=== PATIENT | male | born 1955 | race Caucasian/White ===

== ENCOUNTER 2025-09-10 14:14 | Inpatient (IN) | payer BC, MEDICAID ==
[~2025-09-10] VITALS: Ht 165.1 cm; Wt 96.3 kg
[~2025-09-10 14:14] MED LIST: APIX5TAB MT; OMEP40CA20 PO; P20 PO
[2025-09-10] MEDS: SODIUM CHLORIDE 0.9% (SEPSIS BOLUS) IV ONE (14:49)
[2025-09-10] MEDS: IOHEXOL-350 100 ML BOTTLE ONE (14:59)
[2025-09-10] MEDS: METRONIDAZOLE 500 MG PREMIX 100 ML IV ONE (15:08)
[2025-09-10] MEDS: ONDANSETRON HCL 4MG/2ML INJ IV ONE (15:08)
[2025-09-10 15:19] LABS: HEMATOCRIT. 37.5 % (42.0-52.0); HEMOGLOBIN. 12.1 g/dL (14.0-18.0); MEAN PLATELET VOLUME 7.8 fl (7.4-10.4); PLATELET 219 x1000/uL (130-400); RED BLOOD CELL COUNT 4.01 mill/uL (4.7-6.1); RED CELL DISTRIBUTION WIDTH 16.6 % (11.6-14.6)
[2025-09-10 15:30] LABS: INR 1.0
[2025-09-10 15:35] LABS: CREATININE 1.3 mg/dL (0.6-1.3); UREA NITROGEN BLOOD 17 mg/dL (9-23)
[2025-09-10 15:36] LABS: PROTEIN TOTAL 5.9 g/dL (6.0-8.3)
[2025-09-10 15:37] LABS: ASPARTATE AMINOTRANSFERASE 97 IU/L (<34); BILIRUBIN DIRECT 0.2 mg/dL (<=3.0); BILIRUBIN TOTAL 0.4 mg/dL (0.1-1.0); TROPONIN I HIGH SENSITIVITY 23 ng/L (3.0-53)
[2025-09-10 15:39] LABS: BG DEOXYHEMOGLOBIN 44.9 % (0.0-5.0)
[2025-09-10] MEDS: CEFTRIAXONE 1GM/50ML 50 ML IV ONE (16:07)
[2025-09-10 17:04] LABS: TROPONIN I HIGH SENSITIVITY 18 ng/L (3.0-53)
[2025-09-10 17:27] LABS: BAND% 15.0 % (1.0-6.0); EOSINOPHILS % MANUAL 2.0 % (0.0-5.0); LYMPHOCYTES % MANUAL 8.0 % (20.0-50.0); MONOCYTES % MANUAL 3.0 % (2.0-8.0); NEUTROPHILS % MANUAL 72.0 % (45.0-75.0); PLATELET ESTIMATE NORMAL
[2025-09-10 19:16] VITALS: BP 146/70; PULSE 97; RESP 22; TEMP 36.2
[2025-09-10 19:30] VITALS: BP 146/70; PULSE 97; RESP 22; TEMP 36.2512
[2025-09-10] MEDS ORDERED: DEXTROSE 50% WATER 50ML SYRINGE IV PRN (19:30)
[2025-09-10] MEDS ORDERED: CLONIDINE 0.1MG TABLET PO PRN (19:30)
[2025-09-10] MEDS ORDERED: ZOLPIDEM TARTRATE 5MG TABLET PO PRN (19:30)
[2025-09-10] MEDS ORDERED: DOCUSATE SODIUM 100MG CAPSULE PO PRN (19:30)
[2025-09-10] MEDS ORDERED: IPRATROPIUM/ALBUTEROL 0.5-3(2.5)MG/3ML NEB NEB PRN (19:30)
[2025-09-10] MEDS: INSULIN LISPRO 100 UNITS/ML SUBCUT SCH (21:00)
[2025-09-10] MEDS: BLOOD SUGAR DIAGNOSTIC STRIP TEST SCH (21:24)
[2025-09-10 21:34] LABS: BG BASE EXCESS -1.2 mmol/L (-2.0-3.0); BG CARBOXYHEMOGLOBIN 2.0 % (0.5-1.5); BG DEOXYHEMOGLOBIN 6.1 % (0.0-5.0); BG FLOW(L/min) 3.00 L/min; BG FRACTION INSPIRED OXYGEN 32; BG HCO3 ACT 28.7 mmol/L (21.0-28.0); BG METHEMOGLOBIN 0.2 % (0.5-1.5); BG OXYGEN SATURATION 93.8 % (94.0-98.0); BG OXYHEMOGLOBIN 91.7 % (94.0-98.0); BG PCO2 75.9 mmHg (35.0-48.0); BG PH 7.195 (7.350-7.450); BG PO2 81.6 mmHg (83.0-108.0); BG SAMPLE SITE RIGHT RADIAL; BG TOTAL HEMOGLOBIN 12.9 g/dL (13.5-17.5); BG VENT MODE NASAL CANNULA
[2025-09-10 22:05] VITALS: RESP 25
[2025-09-10] MEDS: PIPERACILLIN/TAZO 3.375G/50ML 50 ML IV SCH (22:46)
[2025-09-11] VITALS (17 sets, daily range): BP systolic 104–147; BP diastolic 62–127; PULSE 66–90; RESP 13–30; TEMP 36.1–36.8; O2SAT 92–100
[2025-09-11 01:51] LABS: BG BASE EXCESS -0.5 mmol/L (-2.0-3.0); BG CARBOXYHEMOGLOBIN 2.0 % (0.5-1.5); BG DEOXYHEMOGLOBIN 11.1 % (0.0-5.0); BG FRACTION INSPIRED OXYGEN 30; BG HCO3 ACT 28.6 mmol/L (21.0-28.0); BG METHEMOGLOBIN 0.3 % (0.5-1.5); BG OXYGEN SATURATION 88.6 % (94.0-98.0); BG OXYHEMOGLOBIN 86.6 % (94.0-98.0); BG PCO2 70.6 mmHg (35.0-48.0); BG PH 7.226 (7.350-7.450); BG PO2 60.1 mmHg (83.0-108.0); BG SAMPLE SITE RIGHT RADIAL; BG TOTAL HEMOGLOBIN 12.4 g/dL (13.5-17.5); BG VENT MODE MASK - BIPAP; BG VENT RATE 22.0 set
[2025-09-11 05:02] LABS: CLARITY URINE CLEAR (CLEAR); COLOR URINE YELLOW (YELLOW); GLUCOSE URINE NEGATIVE (NEGATIVE); KETONES URINE NEGATIVE (NEGATIVE); LEUKOCYTE ESTERASE URINE NEGATIVE (NEGATIVE); NITRITE URINE NEGATIVE (NEGATIVE); OCCULT BLOOD URINE NEGATIVE (NEGATIVE); PH URINE 5.5 (4.5-8.0); PROTEIN URINE TRACE (NEGATIVE); SPECIFIC GRAVITY URINE 1.028 (1.005-1.030); UROBILINOGEN URINE 1.0 E.U./dL (0.2-1.0)
[2025-09-11 05:18] LABS: *AMPHETAMINES SCREEN URINE PRESUMPTIVE POSITIVE (NEGATIVE); *BARBITURATES SCREEN URINE NEGATIVE (NEGATIVE); *BENZODIAZEPINES SCREEN URINE NEGATIVE (NEGATIVE); *COCAINE SCREEN URINE NEGATIVE (NEGATIVE); METHADONE URINE SCREEN NEGATIVE (NEGATIVE); OPIATES URINE SCREEN NEGATIVE (NEGATIVE)
[2025-09-11 05:19] LABS: CANNABINOID URINE SCREEN NEGATIVE (NEGATIVE); ECSTASY MDMA SCREEN URINE NEGATIVE (NEGATIVE); PHENCYCLIDINE URINE SCREEN NEGATIVE (NEGATIVE)
[2025-09-11 05:36] LABS: BACTERIA URINE NONE SEEN; RBC URINE NONE SEEN /hpf (0-2); SQUAMOUS EPITHELIAL CELL URINE NONE SEEN /lpf (RARE/1+); WBC URINE NONE SEEN /hpf (0-2)
[2025-09-11 07:12] LABS: BG BASE EXCESS 1.7 mmol/L (-2.0-3.0); BG CARBOXYHEMOGLOBIN 0.8 % (0.5-1.5); BG DEOXYHEMOGLOBIN 1.7 % (0.0-5.0); BG FRACTION INSPIRED OXYGEN 50; BG HCO3 ACT 31.6 mmol/L (21.0-28.0); BG METHEMOGLOBIN 0.3 % (0.5-1.5); BG OXYGEN SATURATION 98.3 % (94.0-98.0); BG OXYHEMOGLOBIN 97.2 % (94.0-98.0); BG PCO2 80.8 mmHg (35.0-48.0); BG PH 7.210 (7.350-7.450); BG PO2 124.9 mmHg (83.0-108.0); BG SAMPLE SITE RIGHT RADIAL; BG TOTAL HEMOGLOBIN 12.2 g/dL (13.5-17.5); BG VENT MODE MASK - BIPAP; BG VENT RATE 22.0 set
[2025-09-11] MEDS ORDERED: KCL 10MEQ/50ML PREMIX 50 ML IV SCH (08:00)
[2025-09-11] MEDS: AMLODIPINE 5MG TABLET PO SCH (09:00)
[2025-09-11] MEDS: ASPIRIN 81MG TABLET PO SCH (09:00)
[2025-09-11] MEDS: CLOPIDOGREL 75MG TABLET PO SCH (09:00)
[2025-09-11 10:42] LABS: BG BASE EXCESS 0.8 mmol/L (-2.0-3.0); BG CARBOXYHEMOGLOBIN 1.0 % (0.5-1.5); BG DEOXYHEMOGLOBIN 2.7 % (0.0-5.0); BG FRACTION INSPIRED OXYGEN 40; BG HCO3 ACT 30.8 mmol/L (21.0-28.0); BG METHEMOGLOBIN 0.3 % (0.5-1.5); BG OXYGEN SATURATION 97.3 % (94.0-98.0); BG OXYHEMOGLOBIN 96.0 % (94.0-98.0); BG PCO2 78.5 mmHg (35.0-48.0); BG PH 7.211 (7.350-7.450); BG PO2 97.6 mmHg (83.0-108.0); BG SAMPLE SITE LEFT RADIAL; BG TOTAL HEMOGLOBIN 12.9 g/dL (13.5-17.5); BG TOTAL RESPIRATORY RATE 33 b/min; BG VENT MODE MASK - BIPAP; BG VENT RATE 28.0 set
[2025-09-11] MEDS: KCL 20MEQ/100ML PREMIX 100 ML IV SCH (11:00)
[2025-09-11] MEDS: METHYLPREDNISOLONE SOD SUCC 40MG/ML (ACT-O-VIAL) IV SCH (11:00)
[2025-09-11] MEDS: FUROSEMIDE 40MG/4ML VIAL IVP SCH (11:00)
[2025-09-11] MEDS: DEXT 5%/0.45% NACL 1000ML 1,000 ML IV SCH (11:01)
[2025-09-11 13:36] LABS: BG BASE EXCESS 2.5 mmol/L (-2.0-3.0); BG CARBOXYHEMOGLOBIN 1.2 % (0.5-1.5); BG DEOXYHEMOGLOBIN 2.6 % (0.0-5.0); BG FRACTION INSPIRED OXYGEN 40; BG HCO3 ACT 32.7 mmol/L (21.0-28.0); BG METHEMOGLOBIN 0.3 % (0.5-1.5); BG OXYGEN SATURATION 97.4 % (94.0-98.0); BG OXYHEMOGLOBIN 95.9 % (94.0-98.0); BG PCO2 81.1 mmHg (35.0-48.0); BG PH 7.224 (7.350-7.450); BG PO2 98.1 mmHg (83.0-108.0); BG SAMPLE SITE RIGHT RADIAL; BG TOTAL HEMOGLOBIN 13.9 g/dL (13.5-17.5); BG VENT MODE MASK - BIPAP; BG VENT RATE 28.0 set
[2025-09-11 13:52] LABS: BASOPHILS % 0.2 % (0.0-2.0); EOSINOPHILS % 0.1 % (0.0-5.0); HEMATOCRIT. 38.8 % (42.0-52.0); HEMOGLOBIN. 12.7 g/dL (14.0-18.0); LYMPHOCYTES % 8.0 % (20.0-50.0); MEAN PLATELET VOLUME 7.7 fl (7.4-10.4); MONOCYTES % 4.0 % (2.0-8.0); NEUTROPHILS % 87.7 % (40.0-76.0); PLATELET 205 x1000/uL (130-400); RED BLOOD CELL COUNT 4.13 mill/uL (4.7-6.1); RED CELL DISTRIBUTION WIDTH 17.2 % (11.6-14.6)
[2025-09-11 14:15] LABS: ETHANOL BLOOD < 10 mg/dL (<10); TRIGLYCERIDE 106 mg/dL (0-150)
[2025-09-11 14:16] LABS: LDL CHOLESTEROL 48 mg/dL (5-100)
[2025-09-11 14:17] LABS: CREATININE 0.8 mg/dL (0.6-1.3)
[2025-09-11 14:18] LABS: UREA NITROGEN BLOOD 12 mg/dL (9-23)
[2025-09-11 14:20] LABS: VITAMIN B12 SERUM 568 pg/mL (211-911)
[2025-09-11] MEDS: VANCOMYCIN 2GM PMX (XELLIA) 400 ML IV NR (15:03)
[2025-09-11] MEDS: IPRATROPIUM/ALBUTEROL 0.5-3(2.5)MG/3ML NEB NEB SCH (16:28)
[2025-09-11 18:21] LABS: BG BASE EXCESS 3.3 mmol/L (-2.0-3.0); BG CARBOXYHEMOGLOBIN 1.0 % (0.5-1.5); BG DEOXYHEMOGLOBIN 4.3 % (0.0-5.0); BG FRACTION INSPIRED OXYGEN 30; BG HCO3 ACT 32.7 mmol/L (21.0-28.0); BG METHEMOGLOBIN 0.3 % (0.5-1.5); BG OXYGEN SATURATION 95.6 % (94.0-98.0); BG OXYHEMOGLOBIN 94.4 % (94.0-98.0); BG PCO2 75.5 mmHg (35.0-48.0); BG PH 7.254 (7.350-7.450); BG PO2 81.4 mmHg (83.0-108.0); BG SAMPLE SITE RIGHT RADIAL; BG TOTAL HEMOGLOBIN 12.9 g/dL (13.5-17.5); BG VENT MODE MASK - BIPAP; BG VENT RATE 28.0 set
[2025-09-11] MEDS: ATORVASTATIN CALCIUM 40MG TABLET PO SCH (21:19)
[2025-09-12] VITALS (25 sets, daily range): BP systolic 103–162; BP diastolic 54–102; PULSE 66–112; RESP 12–30; TEMP 36.3–36.9; O2SAT 91–100
[2025-09-12 07:43] LABS: HEMATOCRIT. 33.6 % (42.0-52.0); HEMOGLOBIN. 10.7 g/dL (14.0-18.0); MEAN PLATELET VOLUME 8.3 fl (7.4-10.4); PLATELET 187 x1000/uL (130-400); RED BLOOD CELL COUNT 3.53 mill/uL (4.7-6.1); RED CELL DISTRIBUTION WIDTH 17.5 % (11.6-14.6)
[2025-09-12 07:51] LABS: CREATININE 0.8 mg/dL (0.6-1.3)
[2025-09-12 07:52] LABS: LDL CHOLESTEROL 52 mg/dL (5-100); TRIGLYCERIDE 81 mg/dL (0-150); UREA NITROGEN BLOOD 17 mg/dL (9-23)
[2025-09-12] MEDS: INSULIN GLARGINE 100 UNITS/ML SUBCUT SCH (09:53)
[2025-09-12] MEDS: VANCOMYCIN 1.25GM/250ML 250 ML IV SCH (16:32)
[2025-09-12 18:01] LABS: BG BASE EXCESS 8.3 mmol/L (-2.0-3.0); BG CARBOXYHEMOGLOBIN 0.4 % (0.5-1.5); BG DEOXYHEMOGLOBIN 10.3 % (0.0-5.0); BG FRACTION INSPIRED OXYGEN 21; BG HCO3 ACT 33.6 mmol/L (21.0-28.0); BG METHEMOGLOBIN 0.3 % (0.5-1.5); BG OXYGEN SATURATION 89.6 % (94.0-98.0); BG OXYHEMOGLOBIN 89.0 % (94.0-98.0); BG PCO2 49.3 mmHg (35.0-48.0); BG PH 7.451 (7.350-7.450); BG PO2 53.2 mmHg (83.0-108.0); BG SAMPLE SITE RIGHT RADIAL; BG TOTAL HEMOGLOBIN 12.6 g/dL (13.5-17.5); BG VENT MODE ROOM AIR
[2025-09-12 20:08] LABS: LYMPHOCYTES % MANUAL 7.0 % (20.0-50.0); MONOCYTES % MANUAL 1.0 % (2.0-8.0); NEUTROPHILS % MANUAL 92.0 % (45.0-75.0)
[2025-09-12 20:09] LABS: PLATELET ESTIMATE NORMAL
[2025-09-12] MEDS: ONDANSETRON HCL 4MG/2ML INJ IV PRN (22:00)
[2025-09-13] VITALS (18 sets, daily range): BP systolic 110–159; BP diastolic 59–97; PULSE 73–105; RESP 10–19; TEMP 36.3–36.9; O2SAT 78–96
[2025-09-13] MEDS: MAGNESIUM/ALUMINUM HYDROXIDE/SIMETHICONE 30ML UDC PO PRN (04:41)
[2025-09-13 05:54] LABS: CREATININE 0.8 mg/dL (0.6-1.3); UREA NITROGEN BLOOD 28 mg/dL (9-23)
[2025-09-13 05:55] LABS: PROTEIN TOTAL 6.2 g/dL (6.0-8.3)
[2025-09-13 05:56] LABS: ASPARTATE AMINOTRANSFERASE 40 IU/L (<34); BILIRUBIN DIRECT < 0.1 mg/dL (<=3.0); BILIRUBIN TOTAL 0.2 mg/dL (0.1-1.0); PHOSPHORUS 2.9 mg/dL (2.5-4.9)
[2025-09-13 06:05] LABS: HEMATOCRIT. 35.1 % (42.0-52.0); HEMOGLOBIN. 11.6 g/dL (14.0-18.0); MEAN PLATELET VOLUME 8.3 fl (7.4-10.4); PLATELET 220 x1000/uL (130-400); RED BLOOD CELL COUNT 3.81 mill/uL (4.7-6.1); RED CELL DISTRIBUTION WIDTH 16.5 % (11.6-14.6)
[2025-09-13] MEDS ORDERED: SODIUM POLYSTYRENE SULFONATE 15 G/60 ML BOT PO ONE (08:15)
[2025-09-13] MEDS ORDERED: SODIUM ZIRCONIUM CYCLOSILICATE 10GM/PACKET PO ONE (08:30)
[2025-09-13] MEDS: PANTOPRAZOLE 40MG DR TABLET PO SCH (08:54)
[2025-09-13] MEDS: SODIUM ZIRCONIUM CYCLOSILICATE 10GM/PACKET PO NR (09:03)
[2025-09-13] MEDS ORDERED: VANCOMYCIN 1GM PMX (XELLIA) 200 ML IV SCH (11:00)
[2025-09-13 20:33] LABS: BAND% 3.0 % (1.0-6.0); LYMPHOCYTES % MANUAL 6.0 % (20.0-50.0); MONOCYTES % MANUAL 2.0 % (2.0-8.0); NEUTROPHILS % MANUAL 89.0 % (45.0-75.0); PLATELET ESTIMATE NORMAL
[2025-09-13] MEDS: VANCOMYCIN 1G PREMIX 200 ML IV SCH (20:59)
[2025-09-14] VITALS (17 sets, daily range): BP systolic 121–143; BP diastolic 57–88; PULSE 65–93; RESP 11–20; TEMP 36.5–36.9; O2SAT 92–99
[2025-09-14] MEDS: METHYLPREDNISOLONE SOD SUCC 40MG/ML (ACT-O-VIAL) IV SCH (13:03)
[2025-09-14] MEDS: ACETAMINOPHEN 325MG TABLET PO PRN (13:04)
[2025-09-14] MEDS ORDERED: NICOTINE 7MG PATCH TD NR (21:00)
[2025-09-15] VITALS (18 sets, daily range): BP systolic 121–153; BP diastolic 74–114; PULSE 54–94; RESP 10–20; TEMP 36.1–36.7; O2SAT 93–99
[2025-09-15] MEDS: NICOTINE 7MG PATCH TD NR (09:40)
[2025-09-15 17:51] LABS: BASOPHILS % 0.1 % (0.0-2.0); EOSINOPHILS % 0.0 % (0.0-5.0); HEMATOCRIT. 37.0 % (42.0-52.0); HEMOGLOBIN. 12.2 g/dL (14.0-18.0); LYMPHOCYTES % 9.4 % (20.0-50.0); MEAN PLATELET VOLUME 8.0 fl (7.4-10.4); MONOCYTES % 2.7 % (2.0-8.0); NEUTROPHILS % 87.8 % (40.0-76.0); PLATELET 243 x1000/uL (130-400); RED BLOOD CELL COUNT 4.01 mill/uL (4.7-6.1); RED CELL DISTRIBUTION WIDTH 16.0 % (11.6-14.6)
[2025-09-15 17:59] LABS: CREATININE 1.1 mg/dL (0.6-1.3); UREA NITROGEN BLOOD 22 mg/dL (9-23)
[2025-09-15 18:00] LABS: CREATININE 1.1 mg/dL (0.6-1.3); UREA NITROGEN BLOOD 23 mg/dL (9-23)
[2025-09-15] MEDS ORDERED: DEXTROSE 50% WATER 50ML SYRINGE IV PRN (18:45)
[2025-09-15] MEDS: INSULIN LISPRO 100 UNITS/ML SUBCUT SCH ×2 (19:04→21:53)
[2025-09-15] MEDS: BLOOD SUGAR DIAGNOSTIC STRIP TEST SCH (21:53)
[2025-09-16] VITALS (17 sets, daily range): BP systolic 110–158; BP diastolic 61–91; PULSE 66–87; RESP 12–23; TEMP 36.4–37.7; O2SAT 93–100
[2025-09-16] MEDS: INSULIN GLARGINE 100 UNITS/ML SUBCUT SCH (10:53)
[2025-09-17] VITALS (11 sets, daily range): BP systolic 127–150; BP diastolic 71–96; PULSE 67–90; RESP 12–22; TEMP 36.4–36.9; O2SAT 88–100
[2025-09-17 15:02] LABS: BG BASE EXCESS 8.5 mmol/L (-2.0-3.0); BG CARBOXYHEMOGLOBIN 1.3 % (0.5-1.5); BG DEOXYHEMOGLOBIN 8.4 % (0.0-5.0); BG FRACTION INSPIRED OXYGEN 21; BG HCO3 ACT 33.5 mmol/L (21.0-28.0); BG METHEMOGLOBIN 0.3 % (0.5-1.5); BG OXYGEN SATURATION 91.5 % (94.0-98.0); BG OXYHEMOGLOBIN 90.0 % (94.0-98.0); BG PCO2 46.7 mmHg (35.0-48.0); BG PH 7.473 (7.350-7.450); BG PO2 60.5 mmHg (83.0-108.0); BG SAMPLE SITE RIGHT RADIAL; BG TOTAL HEMOGLOBIN 14.7 g/dL (13.5-17.5); BG VENT MODE ROOM AIR
[2025-09-17] MEDS ORDERED: METF-1149 MT (16:13)
[2025-09-17] MEDS ORDERED: CLOP-31 PO (16:13)
[2025-09-17] MEDS ORDERED: ASPI-1160 PO (16:13)
[2025-09-17] MEDS ORDERED: FURO-151 MT (16:13)
[2025-09-17] MEDS ORDERED: P20 PO (16:13)
[2025-09-17] MEDS ORDERED: LIP40 PO (16:13)
== END 2025-09-17 19:22 | disposition home or self-care (01) | DRG 871 ==
LOC: ER 14:42 → EDBEDREQ 17:24 → EDBEDREQTM 17:24 → 3WST 19:12 → 5EST 09-11 17:51
PROVIDERS: ADMIT Internal Medicine; ATTEND Internal Medicine
PROC: 5A09457 Assistance with Respiratory Ventilation, 24-96 Consecutive Hours, Continuous Positive Airway Pressure (ICD-10-PCS; principal; 2025-09-11)
PROC: 5A09357 Assistance with Respiratory Ventilation, Less than 24 Consecutive Hours, Continuous Positive Airway Pressure (ICD-10-PCS; 2025-09-13)
PROC: 5A09357 Assistance with Respiratory Ventilation, Less than 24 Consecutive Hours, Continuous Positive Airway Pressure (ICD-10-PCS; 2025-09-14)
PROC: 5A09357 Assistance with Respiratory Ventilation, Less than 24 Consecutive Hours, Continuous Positive Airway Pressure (ICD-10-PCS; 2025-09-15)
PROC: 5A09357 Assistance with Respiratory Ventilation, Less than 24 Consecutive Hours, Continuous Positive Airway Pressure (ICD-10-PCS; 2025-09-16)
PROC: 5A09357 Assistance with Respiratory Ventilation, Less than 24 Consecutive Hours, Continuous Positive Airway Pressure (ICD-10-PCS; 2025-09-17)
DX: A41.9 Sepsis, unspecified organism (principal); G93.41 Metabolic encephalopathy; J96.01 Acute respiratory failure with hypoxia; J96.02 Acute respiratory failure with hypercapnia; E87.29 Other acidosis; C85.90 Non-Hodgkin lymphoma, unspecified, unspecified site; Z79.01 Long term (current) use of anticoagulants; Z79.02 Long term (current) use of antithrombotics/antiplatelets; E11.9 Type 2 diabetes mellitus without complications; I10 Essential (primary) hypertension; J44.9 Chronic obstructive pulmonary disease, unspecified; E78.5 Hyperlipidemia, unspecified; F17.200 Nicotine dependence, unspecified, uncomplicated; Z79.82 Long term (current) use of aspirin; Z79.84 Long term (current) use of oral hypoglycemic drugs; Z79.899 Other long term (current) drug therapy; Z86.73 Personal history of transient ischemic attack (TIA), and cerebral infarction without residual deficits
CPT/HCPCS: 36415; 36600; 70496; 70498; 71045; 74176; 80048; 80061; 80076; 80202; 80305; 80320; 81003; 82140; 82375; 82607; 82803; 82805; 82962; 83036; 83605; 83735; 83880; 84100; 84145; 84439; 84443; 84484; 85025; 86850; 86900; 87420; 87804; 92610; 93005; 93306; 94070; 94640; 94660; 94664; 97162; 98960; 99291; A4606; A4615; J0696; J1815; J1938; J2405; J2543; J2919; J3373; J3480; J3490; J7030; Q9967; G0480